=== PATIENT | female | born 1960 | race Caucasian/White ===

== ENCOUNTER 2016-04-22 19:14 | Emergency (ER) | payer OTHER ==
[~2016-04-22] VITALS: Ht 175.3 cm; Wt 74.8 kg
[2016-04-22 19:15] VITALS: BP 146/101; PULSE 89; RESP 20; TEMP 98.1; O2SAT 100
[2016-04-22] MEDS ORDERED: ACETAMINOPHEN 325 MG TABLET PO ONE (20:15)
[2016-04-22 21:00] VITALS: BP 115/61; PULSE 64; RESP 16; TEMP 98; O2SAT 99
== END 2016-04-22 21:00 | disposition home or self-care (01) ==
LOC: SED 19:14
DX: S62.101A Fracture of unspecified carpal bone, right wrist, initial encounter for closed fracture (principal); S80.11XA Contusion of right lower leg, initial encounter; W23.0XXA Caught, crushed, jammed, or pinched between moving objects, initial encounter; Y99.8 Other external cause status; Y93.29 Activity, other involving ice and snow; Y92.89 Other specified places as the place of occurrence of the external cause
CPT/HCPCS: 73590-TC; 81025; 99284

== ENCOUNTER 2017-02-13 19:15 | Emergency (ER) | payer OTHER ==
[~2017-02-13] VITALS: Ht 175.3 cm; Wt 78.5 kg
[2017-02-13 19:28] VITALS: BP_SYST 137
--- NOTE | 2017-02-13 19:50 | NUR ---
Patient to ER CHAIR IN [facility] for evaluation. Side rails up. Report given to PATRICK JERONIMO.
--- NOTE | 2017-02-13 19:57 | NUR ---
Patient brought in complaining of left 2nd finger laceration to the dorsal aspect of the PIP joint. Pain 03/06. Bleeding control. Unknown TDAP status. No other complaints/injuries per patient or as noted. Will continue to monitor.
--- NOTE | 2017-02-13 20:00 | NUR ---
VEE [place] at bedside examining patient.
--- NOTE | 2017-02-13 20:10 | NUR ---
Site to left 2nd finger cleansed with Betadine and normal saline. Site measures approximately 0.8 cm. non adherent dressing applied. Tetanus vaccination not current. Will administer TDAP
[2017-02-13] MEDS ORDERED: DIPH-TET-PERTUS Vaccine 0.5 ML VIAL (ADACEL) I.M. ONE (20:15)
[2017-02-13 20:50] VITALS: BP_SYST 130
--- NOTE | 2017-02-13 20:50 | NUR ---
Patient given written and verbal discharge instructions and verbalizes understanding. ER MD discussed with patient the results and treatment provided. Patient in stable condition. ID arm band removed. Rx of bacitracin given. Patient educated on pain management and to follow up with PMD. Pain Scale 0/10. Opportunity for questions provided and answered.
== END 2017-02-13 20:50 | disposition home or self-care (01) ==
LOC: SED 19:15
DX: S61.211A Laceration without foreign body of left index finger without damage to nail, initial encounter (principal); R03.0 Elevated blood-pressure reading, without diagnosis of hypertension; W45.8XXA Other foreign body or object entering through skin, initial encounter; Y93.89 Activity, other specified; Y92.89 Other specified places as the place of occurrence of the external cause; Y99.2 Volunteer activity
CPT/HCPCS: 90715; 99283